=== PATIENT | female | born 1995 | race Caucasian/White ===

== ENCOUNTER → 2017-04-29 | Outpatient (CLI) | payer OTHER ==
[~2017-04-29] VITALS: Ht 162.6 cm; Wt 56.0 kg
[~2017-04-29] MED LIST: IBUPROFEN800 MG PO; PRENATAL TABLE1 EAC3 PO; REGLAN10 MG PO; TORADOL10 MG PO
[2017-04-29 09:35] VITALS: BP 114/65
== END | disposition home or self-care (01) ==
LOC: IVINF 09:30
DX: Z31.82 Encounter for Rh incompatibility status (principal)
CPT/HCPCS: 96372; J2790

== ENCOUNTER 2017-07-18 03:17 | Inpatient (IN) | payer OTHER ==
[~2017-07-18] VITALS: Ht 162.6 cm; Wt 65.3 kg
[2017-07-18] VITALS (9 sets, daily range): BP systolic 114–132; BP diastolic 62–82
[2017-07-18] MEDS ORDERED: BENADRYL50 MG PO (04:10)
[2017-07-18] MEDS ORDERED: TYLENOL EXTRA500 MG PO (04:10)
[2017-07-18 04:33] LABS: BASOPHIL COUNT 0.1 K/uL (0-0.1); EOSINOPHIL (%) 2.1 % (0-5); EOSINOPHIL COUNT 0.3 K/uL (0-0.3); HEMATOCRIT 35.8 % (36.0-46.0); IMMATURE GRANULOCYTE (%) 1.3 % (0.0-0.7); IMMATURE GRANULOCYTE COUNT 0.2 K/uL; INSTRUMENT ABS NEUTROPHIL CT 8.4 K/uL; MCH 31.9 PG (29.0-34.0); MCHC 34.4 G/DL (30.0-36.0); MEAN PLAT.VOLUME 10.8 uM^3 (9.5-12.4); MONOCYTE (%) 8.4 % (3-12); MONOCYTE COUNT 1.2 K/uL (0-0.8); NEUTROPHIL (%) 59.7 % (45-76); NEUTROPHIL COUNT 8.4 K/uL (1.8-6.4); PLATELET COUNT 258 K/uL (156-360); RBC DIS.WIDTH-CV 12.5 % (11.8-14.6); RBC DIS.WIDTH-SD 42.5 % (39-53); RED BLOOD COUNT 3.85 M/uL (3.80-5.20); WHITE BLOOD COUNT 14.1 K/uL (4.1-10.2)
[2017-07-19 07:10] VITALS: BP 109/67
[2017-07-19 07:16] LABS: BASOPHIL COUNT 0.1 K/uL (0-0.1); EOSINOPHIL COUNT 0.3 K/uL (0-0.3); IMMATURE GRANULOCYTE (%) 0.7 % (0.0-0.7); IMMATURE GRANULOCYTE COUNT 0.1 K/uL; INSTRUMENT ABS NEUTROPHIL CT 10.9 K/uL; LYMPHOCYTE COUNT 3.2 K/uL (1.0-2.8); MCH 32.2 PG (29.0-34.0); MCHC 34.1 G/DL (30.0-36.0); MCV 94.4 FL (83-99); MONOCYTE (%) 6.9 % (3-12); MONOCYTE COUNT 1.1 K/uL (0-0.8); NEUTROPHIL (%) 69.4 % (45-76); NEUTROPHIL COUNT 10.9 K/uL (1.8-6.4); RBC DIS.WIDTH-CV 12.6 % (11.8-14.6); RBC DIS.WIDTH-SD 43.8 % (39-53); RED BLOOD COUNT 3.39 M/uL (3.80-5.20); WHITE BLOOD COUNT 15.7 K/uL (4.1-10.2)
[2017-07-19 07:36] LABS: MEAN PLAT.VOLUME 10.8 uM^3 (9.5-12.4); PLAT.SUFFICIENCY ADEQUATE
[2017-07-19 07:41] LABS: PLATELET COUNT 178 K/uL (156-360)
[2017-07-19 13:45] VITALS: BP 116/72
[2017-07-20 07:41] VITALS: BP 110/65
[2017-07-20] MEDS ORDERED: IBUPROFEN800 MG PO (09:08)
== END 2017-07-20 14:30 | disposition home or self-care (01) | DRG 775 ==
LOC: LDRP-OP → 2WEST 03:18 → LDRP-OP 08-24 12:26
PROVIDERS: Advanced Practice Midwife
DX: O70.0 First degree perineal laceration during delivery (principal); O32.8XX0 Maternal care for other malpresentation of fetus, not applicable or unspecified; Z3A.39 39 weeks gestation of pregnancy; Z37.0 Single live birth; Z87.891 Personal history of nicotine dependence
CPT/HCPCS: 83030; 85025; 86850; 86870; 86900; 86901; J0595; J2790; J7120